=== PATIENT | male | born 2000 | race Caucasian/White ===

== ENCOUNTER 2021-09-06 00:26 | Emergency (ER) | payer BC, SELFPAY ==
--- NOTE | 2021-09-06 | ECG_ITS ---
Test Reason : CHEST PRESSURE Blood Pressure : / mmHG Vent. Rate : 065 BPM Atrial Rate : 065 BPM P-R Int : 164 ms QRS Dur : 096 ms QT Int : 392 ms P-R-T Axes : 060 066 011 degrees QTc Int : 407 ms Sinus rhythm with marked sinus arrhythmia Otherwise normal ECG No previous ECGs available Referred By: Generic ED Physician Electronically Signed By:Iker Gaines
--- NOTE | ~2021-09-06 | XR_ITS ---
EXAMINATION: XR CHEST CLINICAL INFORMATION: Chest pain COMPARISON: None TECHNIQUE: Frontal view of the chest was obtained. FINDINGS: The lungs are clear with no focal consolidation. No evidence of pneumothorax, pulmonary edema, or pleural effusions. The cardiomediastinal silhouette is unremarkable. No acute osseous findings. XR/XR chest 1V IMPRESSION: No acute cardiopulmonary findings.
[2021-09-06 01:32] VITALS: BP 143/101; PULSE 75; RESP 14; TEMP 37; O2SAT 100; BMI 22.0
[2021-09-06 01:58] LABS: Basophils Absolute Auto 0.1 X10*3/uL (0.0-0.2); Basophils Percent Auto 0.8 % (0-2); Eosinophils Absolute Auto 0.2 X10*3/uL (0.0-0.4); Eosinophils Percent Auto 2.8 % (0-4); Hematocrit 40.1 % (42.0-52.0); Hemoglobin 13.6 g/dl (14.0-18.0); Imm Gran Abs Auto 0.01 X10*3/uL (0.00-0.03); Imm Gran Pct Auto 0.1 % (0.0-0.4); Lymphocytes Absolute Auto 2.3 X10*3/uL (1.2-4.9); MANUAL DIFF FLAG NO; Mean Corpuscular HGB Conc 33.9 g/dl (31.0-36.0); Mean Corpuscular Hemoglobin 29.4 pg (27.0-33.0); Mean Corpuscular Volume 86.8 fL (80.0-98.0); Mean Platelet Volume 8.3 fL (9.4-12.4); Monocytes Absolute Auto 0.5 X10*3/uL (0.1-1.2); Monocytes Percent Auto 6.6 % (2-11); Neutrophils Absolute Auto 4.9 x10*3/uL (2.0-8.3); Neutrophils Percent Auto 60.7 % (45-73); Platelet Count 377 X10*3/uL (160-400); Red Blood Count 4.62 X10*6/uL (4.60-5.80); Red Cell Distribution Width 11.9 % (11.0-16.0)
--- NOTE | 2021-09-06 02:16 | ED.CHESTPAIN ---
HPI - Chest Pain General Chief Complaint: Chest Pain Stated Complaint: Chest pain Time Seen by Provider: 09/06/21 02:11 Source: patient Mode of arrival: ambulatory History of Present Illness HPI narrative: 21-year-old male without significant past medical history state been experiencing some left-sided chest pressure that he has some difficulty further characterizing but states that it is intermittent and has not been associated with any dizziness, headache, sweating, nausea, shortness of breath. Otherwise, patient also reports that he has had some muscle aches that he is unsure what to make of. Related Data Allergies Allergy/AdvReac Type Severity Reaction Status Date / Time cephalexin [From Keflex] Allergy Unknown Verified 09/06/21 01:31 Review of Systems Review of Systems: Pertinent positives and negatives as stated in HPI 10 point review of systems is otherwise negative. PMFSH Past Medical History Source: nursing notes reviewed Social History Social History Advance Directives: No Advance Directives Information Provided: Yes Physical Exam Vital Signs: Vital Signs: Last Vital Signs Temp 98.6 F 09/06/21 01:32 Pulse 64 09/06/21 03:41 Resp 16 09/06/21 03:41 BP 147/85 H 09/06/21 03:41 Pulse Ox 100 09/06/21 03:41 BMI result Body Mass Index 22.0 VITAL SIGNS: Reviewed. GENERAL: Well developed, well nourished, in no acute distress. HEAD: Normocephalic/atraumatic EYES: PERRLA, EOMI LUNGS: Normal breath sounds. No adventitious sounds or accessory muscle use. SpO2<100> CARDIOVASCULAR: Regular rate and rhythm without noted murmurs ABDOMEN: Soft, non-tender, non-distended with bowel sounds. MUSCULOSKELETAL: No tenderness, deformities, or effusions noted on gross inspection. EXTREMITIES: No cyanosis, clubbing or edema. SKIN: Inspection of the skin reveals no rashes NEUROLOGIC: Alert and oriented x 4. Strength and sensation to light touch were grossly intact x 4. Course Course Course Narrative: 21-year-old male with history and clinical presentation of left-sided chest pain. Workup and dispo as indicated. Review of all investigations otherwise negative for acute findings to include no electrolyte abnormalities or elevation in CPK. All results discussed with patient bedside he was encouraged to follow-up with his primary care provider at is earliest convenience. MDM - Chest Pain Lab Data Result diagrams: 09/06/21 01:09/06/21 01: Labs: Lab Results 09/06/21 09/06/21 09/06/21 Range/Units 01: 01: 01:26 WBC 8.0 (4.8-10.8) X10*3/uL RBC 4.62 (4.60-5.80) X10*6/uL Hgb 13.6 L (14.0-18.0) g/dl Hct 40.1 L (42.0-52.0) % MCV 86.8 (80.0-98.0) fL MCH 29.4 (27.0-33.0) pg MCHC 33.9 (31.0-36.0) g/dl RDW 11.9 (11.0-16.0) % Plt Count 377 (160-400) X10*3/uL MPV 8.3 L (9.4-12.4) fL Immature Gran % (Auto) 0.1 (0.0-0.4) % Neut % (Auto) 60.7 (45-73) % Lymph % (Auto) 29.0 (20-40) % [place] % (Auto) 6.6 (2-11) % Eos % (Auto) 2.8 (0-4) % Baso % (Auto) 0.8 (0-2) % Lymph # (Auto) 2.3 (1.2-4.9) X10*3/uL [place] # (Auto) 0.5 (0.1-1.2) X10*3/uL Eos # (Auto) 0.2 (0.0-0.4) X10*3/uL Baso # (Auto) 0.1 (0.0-0.2) X10*3/uL Abs Immat Gran (auto) 0.01 (0.00-0.03) X10*3/uL Absolute Neuts (auto) 4.9 (2.0-8.3) x10*3/uL Absolute Nucleated RBC 0.000 (0.0-0.012) X10*3/uL Nucleated RBC % (auto) 0.0 (0.0-0.2) /100WBC Sodium 142 (135-145) mmol/L Potassium 3.8 (3.3-5.1) mmol/L Chloride 106 (96-108) mmol/L Carbon Dioxide 25 (22-29) mmol/L Anion Gap 15 (12-20) BUN 12 (9-16) mg/dL Creatinine 0.85 (0.5-1.4) mg/dL Estim Creat Clear Calc 130.4 Estimated GFR > 60 Random Glucose 91 (60-115) mg/dL Calcium 10.1 (8.4-10.2) mg/dL Total Bilirubin 0.5 (0.0-1.0) mg/dL AST 18 (5-37) U/L ALT 17 (0-40) U/L Alkaline Phosphatase 106 (39-117) U/L Total Creatine Kinase 80 (38-174) U/L Troponin I High Sens < 3.5 (<3.5-35.0) ng/L Total Protein 7.3 (6.5-8.0) g/dL Albumin 4.8 (3.5-5.0) g/dL ECG Data ECG #1: Attestation: I personally reviewed and interpreted this ECG as follows: Prior ECG tracings: not available for review Interpretation: Sinus rhythm, HR -65, there is noted ST abnormality in lead 3, no STEMI, IA/QRS/QTC within normal limits. Discharge Plan Discharge Clinical Impression: Chest pain, Myalgia Patient Disposition: Home, Self-Care Instructions: Musculoskeletal Pain (ED), Chest Pain (ED) Additional Instructions: 1. Increase fluid hydration, especially with water. 2. Take [id number] Tylenol/ibuprofen as needed for pain control. 3. Follow-up with your primary care provider on Tuesday to set up an appointment for re-evaluation further outpatient management. Return to the ER for worsening symptoms.
[2021-09-06 02:17] LABS: Alanine Aminotransferase 17 U/L (0-40); Albumin Level 4.8 g/dL (3.5-5.0); Alkaline Phosphatase 106 U/L (39-117); Anion Gap 15 (12-20); Aspartate Amino Transferase 18 U/L (5-37); Bilirubin Total 0.5 mg/dL (0.0-1.0); Blood Urea Nitrogen 12 mg/dL (9-16); Calcium 10.1 mg/dL (8.4-10.2); Carbon Dioxide 25 mmol/L (22-29); Chloride 106 mmol/L (96-108); Creatinine Clr Calc Pharmacy 130.4; Estimated Glomerular Filt Rate > 60; Glucose Random 91 mg/dL (60-115); Potassium 3.8 mmol/L (3.3-5.1); Sodium 142 mmol/L (135-145); Total Protein 7.3 g/dL (6.5-8.0)
[2021-09-06 02:19] LABS: Troponin-I High Sensitivity < 3.5 ng/L (<3.5-35.0)
[2021-09-06] MEDS: Acetaminophen 325 MG TABLET 975 MG PO (03:21)
[2021-09-06] MEDS: Ibuprofen 400 MG TABLET PO (03:21)
[2021-09-06 03:41] VITALS: BP 147/85; PULSE 64; RESP 16; O2SAT 100
== END 2021-09-06 04:07 | disposition home or self-care (01) ==
PROVIDERS: Emergency Provider Student in an Organized Health Care Education/Training Program
DX: R07.9 Chest pain, unspecified (principal); M79.10 Myalgia, unspecified site
CPT/HCPCS: 36415; 71045; 80053; 82550; 84484; 85025; 93005; 99283; 99284

== ENCOUNTER 2021-09-08 00:46 | Emergency (ER) | payer BC, SELFPAY ==
[2021-09-08 00:49] VITALS: BP 148/93; PULSE 92; RESP 20; TEMP 36.4; O2SAT 100; BMI 22.6
[2021-09-08 04:22] LABS: D Dimer High Sensitivity 172 NG/ML
--- NOTE | 2021-09-08 04:43 | ED_ITS ---
HPI - Extremity Problem General Chief complaint: Extremity Injury, Upper Stated complaint: possible blood clot Time Seen by Provider: 09/08/21 03:36 Source: patient Mode of arrival: ambulatory History of Present Illness HPI Narrative: 21-year-old male presents with complaints of left bicep discomfort and he is very concerned that he may have a clot in his arm but otherwise denies any palpitations, fevers, shortness of breath and denies any trauma. Related Data Allergies Allergy/AdvReac Type Severity Reaction Status Date / Time cephalexin [From Keflex] Allergy Unknown Verified 09/06/21 01:31 Review of Systems Review of Systems: Pertinent positives and negatives as stated in HPI 10 point review of systems is otherwise negative. [facility] Past Medical History Source: nursing notes reviewed Social History Social History Advance Directives: No Advance Directives Information Provided: Yes Physical Exam Vital Signs: Vital Signs: Last Vital Signs Temp 97.6 F 09/08/21 00:49 Pulse 92 09/08/21 00:49 Resp 20 09/08/21 00:49 BP 148/93 H 09/08/21 00:49 Pulse Ox 100 09/08/21 00:49 BMI result Body Mass Index 22.6 VITAL SIGNS: Reviewed. GENERAL: Well developed, well nourished, in no acute distress. HEAD: Normocephalic/atraumatic EYES: PERRLA, EOMI OROPHARYNX: no oral lesions noted, posterior pharynx clear LUNGS: Normal breath sounds. No adventitious sounds or accessory muscle use. SpO2<100> CARDIOVASCULAR: Regular rate and rhythm without noted murmurs LEFT UPPER EXTREMITY: no erythema/ induration/cords noted at left bicep area and no swelling noted distally, palpable radial / ulnar pulses and good capillary refill. NEUROLOGIC: Alert and oriented x 4. Course Course Course Narrative: 21-year-old male with history and clinical presentation most consistent with benign musculoskeletal pain, however obtain D-dimer that on review is not indicative of an acute VTE and patient is PERC negative. All thought then plans were discussed with the patient at bedside and he acknowledges understanding and is otherwise discharged home in stable condition. MDM - Extremity (Nontraumatic) Lab Data Labs: Lab Results 09/08/21 Range/Units 03:49 D-Dimer High Sensitivty 172 NG/ML Discharge Plan Discharge Clinical Impression: Muscle pain Patient Disposition: Home, Self-Care Instructions: Musculoskeletal Pain (ED) Additional Instructions: recommend [id number] Tylenol/ ibuprofen as needed for pain control. You may consider utilizing either hot compresses or cold compresses depending on which you get relief from. Otherwise, recommend following up with primary care provider.
[2021-09-08 04:57] VITALS: BP 135/72; PULSE 64; RESP 20; O2SAT 98
== END 2021-09-08 04:59 | disposition home or self-care (01) ==
PROVIDERS: Emergency Provider Student in an Organized Health Care Education/Training Program
DX: M79.18 Myalgia, other site (principal); M79.622 Pain in left upper arm
CPT/HCPCS: 36415; 85379; 99283